=== PATIENT | male | born 1965 | race Caucasian/White ===

== ENCOUNTER 2018-03-30 10:43 | Emergency (ER) | payer MEDICAID ==
[~2018-03-30] VITALS: Ht 177.8 cm; Wt 98.4 kg
[~2018-03-30 10:43] MED LIST: TYLENOL PO
[2018-03-30 12:21] LABS: BASOPHIL % 0.4 % (0-2); PLATELET COUNT 140 x10^3mcL (130-400); RED CELL DISTRIBUTION WIDTH 13.9 % (11.5-14.5)
[2018-03-30 12:34] LABS: CALCIUM 9.7 mg/dL (8.5-10.1); CARBON DIOXIDE 28.3 mmol/L (21-32); CHLORIDE SERUM 102 mmol/L (98-107); CREATININE SERUM 0.7 mg/dL (0.7-1.3); GFR1 > 60 mL/min; GLUCOSE SERUM 91 mg/dL (74-106); POTASSIUM SERUM 3.9 mmol/L (3.5-5.1); SODIUM SERUM 136 mmol/L (136-145)
[2018-03-30 12:35] LABS: ALBUMIN 3.7 g/dL (3.4-5.0); ALKALINE PHOSPHATASE 69 U/L (46-116); ALT/SGPT 169 U/L (16-63); AST/SGOT 110 U/L (15-37); BILIRUBIN TOTAL 1.09 mg/dL (0.20-1.00); CHOLESTEROL 133 mg/dL (<200); HDL CHOLESTEROL 27 mg/dL (40-60); PHOSPHOROUS 4.6 mg/dL (2.5-4.9); TOTAL PROTEIN, SERUM 8.5 g/dL (6.4-8.2); URIC ACID 5.3 mg/dL (3.5-7.2)
[2018-03-30 13:54] VITALS: BP 124/97
== END 2018-03-30 13:54 | disposition home or self-care (01) ==
LOC: ED 10:43
PROVIDERS: Emergency Medicine
DX: R07.89 Other chest pain (principal); Z88.5 Allergy status to narcotic agent
CPT/HCPCS: 36415; 83880; J1885; Q0092